=== PATIENT | female | born 1940 | race Caucasian/White ===

== ENCOUNTER 2019-04-25 14:00 | Observation (INO) | payer MEDICARE ==
[~2019-04-25] VITALS: Ht 157.5 cm; Wt 76.1 kg
[2019-04-25 14:15] LABS: BASOPHILS % (AUTO) 0.5 % (0.0-5.0); EOSINOPHILS % (AUTO) 2.2 % (0.0-8.0); HEMATOCRIT 36.5 % (36-48); LYMPHOCYTES % (AUTO) 26.3 % (21.0-51.0); MEAN CORPUSCULAR HEMOGLOBIN 27.7 pg (27.0-33.0); MEAN CORPUSCULAR HGB CONC 34.2 g/dL (32.0-36.0); MEAN CORPUSCULAR VOLUME 80.9 fL (79-99); MONOCYTES % (AUTO) 9.7 % (3.0-13.0); PLATELET COUNT (AUTO) 203 K/uL (130-400); RED BLOOD CELL COUNT(AUTO) 4.51 MIL/uL (4.00-5.50); RED CELL DISTRIBUTION WIDTH 13.5 % (11.0-15.5); WHITE BLOOD COUNT (AUTO) 6.5 K/uL (4.8-10.8)
[2019-04-25 14:36] VITALS: BP 167/84
[2019-04-25 14:40] LABS: CREATININE 0.8 mg/dL (0.5-1.5); POTASSIUM 4.2 mmol/L (3.5-5.1)
--- NOTE | 2019-04-25 15:04 | NUR ---
LAS INFORMED DR. TONO JUAREZ ASST IN REGARDS TO ABNORMAL CHLORIDE AND SODIUM LEVELS. PER DR. POWER, INFORM DR. KIMBALL AND FOLLOW HIS RECOMMENDATIONS
--- NOTE | 2019-04-25 15:05 | NUR ---
LABS INFORMED DR. KIMBALL OF ABNORMAL SODIUM AND CHLORIDE LEVELS. ORDERS RECEIVED TO CALL PTS PCP AND FOLLOW HIS RECOMMENDATIONS.
--- NOTE | 2019-04-25 15:15 | NUR ---
LABS INFORMED DR. AGUERO OF ABNORMAL SODIUM AND CHLORIDE LEVELS. STATES HE WILL CALL PT TO INSTRUCT ON DIET RECOMMENDATIONS AND CHANGE HER LISINOPRIL/HCTZ TO JUST LISINOPRIL AND HAVE PT REDRAWN. CALL DR. COTA FOR ANY MORE CONCERNS
[2019-04-25] MEDS ORDERED: LEVO125 PO (15:23)
[2019-04-25] MEDS ORDERED: MULT-1192 PO (15:23)
[2019-04-25] MEDS ORDERED: LISI1TAB29 PO (15:23)
[2019-04-25] MEDS ORDERED: ESOM20CA31 PO (15:23)
[2019-04-25] MEDS ORDERED: ASPI-555 PO (15:23)
--- NOTE | 2019-04-25 15:30 | NUR ---
LABS CALLED PT TO INFORM OF NEW LAB DRAW ORDER. LEFT MESSAGE.
[2019-04-27 08:51] LABS: CREATININE 0.8 mg/dL (0.5-1.5); POTASSIUM 4.1 mmol/L (3.5-5.1)
[2019-04-28] MEDS ORDERED: CEFAZOLIN SODIUM 1 GM VIAL IVP SCH (06:00)
[2019-05-02 09:11] LABS: CREATININE 0.8 mg/dL (0.5-1.5); POTASSIUM 4.6 mmol/L (3.5-5.1)
--- NOTE | 2019-05-03 13:00 | NUR ---
LABS INFORMED DR. POWER OF ABNORMAL SODIUM LEVEL. PER DR. POWER OK TO PROCEED WITH PLANNED PROCEDURE
[2019-05-04] VITALS (21 sets, daily range): BP systolic 91–147; BP diastolic 45–87
[2019-05-04] MEDS ORDERED: CEFAZOLIN SODIUM 1 GM VIAL ONE (06:20)
[2019-05-04] MEDS ORDERED: LACTATED RINGERS 1000ML 1,000 ML IV ONE (06:20)
[2019-05-04] MEDS ORDERED: LIDOCAINE PF 2% 5ML ABBOJECT ONE (06:39)
[2019-05-04] MEDS ORDERED: SUCCINYLCHOLINE 200MG/10ML SYR ONE (06:39)
[2019-05-04] MEDS ORDERED: PROPOFOL 10 MG/ML 20ML VIAL IV ONE (06:41)
[2019-05-04] MEDS ORDERED: DEXAMETHASONE SOD PHOSPHATE 10MG/ML 1ML VIAL ONE (06:41)
[2019-05-04] MEDS ORDERED: NEOSTIGMINE 5MG/5ML SYR IV ONE (06:41)
[2019-05-04] MEDS ORDERED: GLYCOPYRROLATE 1 MG/5 ML SYRINGE ONE (06:41)
[2019-05-04] MEDS ORDERED: MIDAZOLAM HCL 1 MG/ML 2ML VIAL ONE (06:41)
[2019-05-04] MEDS ORDERED: ROCURONIUM 10MG/1ML SYR 10 MG/ML ML ONE (06:42)
[2019-05-04] MEDS ORDERED: FENTANYL CITRATE PF 50 MCG/1 ML 2ML VIAL ONE ×2 (06:42→08:30)
[2019-05-04] MEDS ORDERED: ONDANSETRON HCL 4 MG/2 ML VIAL ONE (06:42)
[2019-05-04] MEDS ORDERED: DURAMORPH PF1 MG/ML 10ML AMP IV ONE (06:57)
[2019-05-04] MEDS ORDERED: BUPIVACAINE/EPI/PF 0.25% 30ML VIAL IJ ONE ×2 (06:57→08:12)
[2019-05-04] MEDS ORDERED: THROMBIN-JMI 20000 UNIT KIT TP ONE (06:58)
[2019-05-04] MEDS ORDERED: BACITRACIN 50,000 UNIT VIAL ONE (06:58)
[2019-05-04] MEDS ORDERED: PHENYLEPHRINE HCL 10 MG/ML 1ML VIAL IV ONE (08:17)
[2019-05-04] MEDS ORDERED: METOCLOPRAMIDE 10 MG/2 ML VIAL ONE (08:17)
[2019-05-04] MEDS ORDERED: HYDROCODONE/ACETAMINOPHEN 5/325 MG TAB PO PRN (11:15)
[2019-05-04] MEDS ORDERED: PROMETHAZINE HCL 25 MG/ML 1ML AMPULE IM PRN (11:15)
[2019-05-04] MEDS ORDERED: SODIUM CHLORIDE 0.9% 10 ML VIAL IVP PRN (11:15)
[2019-05-04] MEDS ORDERED: CEFAZOLIN SODIUM 1 GM VIAL IVP SCH (11:15)
[2019-05-04] MEDS ORDERED: MEPERIDINE-PF 25 MG/ML SYG ONE (11:21)
[2019-05-04] MEDS ORDERED: AMLO5TAB9 PO (12:44)
[2019-05-04] MEDS ORDERED: LISI-613 PO (12:46)
[2019-05-04] MEDS: LACTATED RINGERS 1000ML 1,000 ML IV SCH ×2 (13:05→23:25)
[2019-05-04] MEDS: DEXAMETHASONE SOD PHOSPHATE 4 MG/ML 1ML VIAL IVP SCH ×3 (15:00→23:20)
--- NOTE | 2019-05-04 17:00 | NUR ---
PATIENT DANGLED AT BEDSIDE. PATIENT STATED FELT DIZZY AND HAD AN EMESIS EPISODE. PATIENT STATED WILL ATTEMPT TO WALK LATER TONIGHT.
[2019-05-04] MEDS ORDERED: LEVOTHYROXINE 125 MCG TABLET PO SCH (21:00)
[2019-05-04] MEDS: MORPHINE SULFATE 2 MG/ML 1ML SYG IVP PRN ×2 (22:14→23:44)
[2019-05-05] VITALS: BP 112/66
[2019-05-05 04:00] VITALS: BP 116/61
[2019-05-05] MEDS: DEXAMETHASONE SOD PHOSPHATE 4 MG/ML 1ML VIAL IVP SCH (05:50)
[2019-05-05] MEDS: LEVOTHYROXINE 125 MCG TABLET PO SCH ×2 (05:51→06:54)
[2019-05-05 08:26] VITALS: BP 121/56
[2019-05-05] MEDS ORDERED: PANTOPRAZOLE SODIUM 40 MG TABLET.DR PO SCH (09:00)
[2019-05-05] MEDS ORDERED: LISINOPRIL 20 MG TABLET PO SCH (09:00)
[2019-05-05] MEDS ORDERED: MULTIVITAMIN TABLET PO SCH (09:00)
[2019-05-05] MEDS ORDERED: ASPIRIN 81 MG EC TAB PO SCH (09:00)
[2019-05-05] MEDS ORDERED: HYDROCHLOROTHIAZIDE 25 MG TABLET PO SCH (09:00)
--- NOTE | 2019-05-05 11:25 | NUR ---
DISCHARGE PATIENT GIVEN DISCHARGE INSTRUCTIONS VIA TEACH BACK. 20G PIV TO LFA DISCONTINUED, TIP INTACT. PADMINI DRAIN TO LEFT LOWER BACK DISCONTINUED, TIP INTACT. KELSI INTACT, NO REDNESS OR SWELLING NOTED. NEW DRY DRESSING APPLIED. PATIENT INSTRUCTED ON INCISION CARE, ACTIVITY, APPOINTMENTS AND PAIN MEDICATIONS. PATIENT STABLE AND DENIES ANY PAIN AT THIS TIME. PATIENT WHEELED TO LOBBY BY JOSE RAUL HALL.
--- NOTE | 2019-05-05 16:11 | NUR ---
1103 Had pt sign SOTO Letter,faxed to [phone] and placed in chart under consent tab.
== END 2019-05-05 12:16 | disposition home or self-care (01) ==
LOC: EDSTATUS 14:00 → DAHIP 05-04 06:07 → 4AH 05-04 11:25
PROVIDERS: ADMIT Neurological Surgery; ATTEND Neurological Surgery
PROC: 01NB0ZZ Release Lumbar Nerve, Open Approach (ICD-10-PCS; principal; 2019-05-04 07:30)
DX: M48.061 Spinal stenosis, lumbar region without neurogenic claudication (principal); M79.605 Pain in left leg
CPT/HCPCS: 36415 ×3; 63047; 63048 ×3; 71045; 72020; 80048 ×3; 85025; 96372; 96374; 96375; 96376 ×3; A4215; A4222; A4223; A4344; A4510; A4600; A4649 ×4; A4663; G0378 ×21; J0330; J0690 ×2; J1100 ×4; J2001; J2175; J2250; J2274; J2370; J2405; J2550; J2704; J2710; J2765; J3010 ×2; J3490 ×3; J7030; J7120 ×3; 96361; 96365; 96366

== ENCOUNTER 2019-05-07 00:50 | Emergency (ER) | payer MEDICARE ==
[~2019-05-07 00:50] MED LIST: AMLO5TAB9 PO; ASPI-555 PO; ESOM20CA31 PO; LEVO125 PO; LISI-613 PO; MULT-1192 PO
[2019-05-07 01:21] LABS: APPEARANCE,URINE Clear (CLEAR); BILIRUBIN,URINE Negative (NEGATIVE); COLOR,URINE Yellow (YELLOW); GLUCOSE, URINE (UA) Negative (NEGATIVE); KETONES,URINE Negative (NEGATIVE); LEUKOCYTE ESTERASE ,URINE Negative (NEGATIVE); NITRATE,URINE Negative (NEGATIVE); OCCULT BLOOD,URINE Negative (NEGATIVE); PH,URINE 8.5 (5.0-8.0); PROTEIN,URINE Negative (NEGATIVE)
[2019-05-07] MEDS ORDERED: ONDANSETRON HCL 4 MG/2 ML VIAL ONE (01:24)
[2019-05-07] MEDS ORDERED: SODIUM CHLORIDE 0.9% 1000ML 1,000 ML IV ONE (01:25)
[2019-05-07] MEDS ORDERED: ORPHENADRINE CITRATE 30 MG/ML ML ONE (01:25)
[2019-05-07] MEDS ORDERED: MORPHINE SULFATE 2 MG/ML 1ML SYG ONE (01:25)
[2019-05-07 01:52] LABS: BASOPHILS % (AUTO) 0.2 % (0.0-5.0); HEMATOCRIT 32.1 % (36-48); LYMPHOCYTES % (AUTO) 15.2 % (21.0-51.0); MEAN CORPUSCULAR HEMOGLOBIN 27.7 pg (27.0-33.0); MEAN CORPUSCULAR HGB CONC 33.3 g/dL (32.0-36.0); MEAN CORPUSCULAR VOLUME 83.2 fL (79-99); MONOCYTES % (AUTO) 9.5 % (3.0-13.0); NEUTROPHILS % (AUTO) 74.3 % (40.0-77.0); PLATELET COUNT (AUTO) 154 K/uL (130-400); RED BLOOD CELL COUNT(AUTO) 3.86 MIL/uL (4.00-5.50); RED CELL DISTRIBUTION WIDTH 14.2 % (11.0-15.5); WHITE BLOOD COUNT (AUTO) 8.9 K/uL (4.8-10.8)
[2019-05-07 02:05] LABS: CREATININE 0.7 mg/dL (0.5-1.5); POTASSIUM 3.5 mmol/L (3.5-5.1)
[2019-05-07 02:09] LABS: ALBUMIN 3.4 g/dL (3.5-5.0); BILIRUBIN,TOTAL 0.9 mg/dL (0.2-1.0); TOTAL PROTEIN, SERUM 6.7 g/dL (6.0-8.3)
[2019-05-07] MEDS ORDERED: LIDOCAINE 5% TOPICAL PATCH TP ONE (03:37)
[2019-05-07] MEDS ORDERED: KETOROLAC TROMETHAMINE 15MG/ML ONE (03:38)
== END 2019-05-07 03:55 | disposition home or self-care (01) ==
LOC: EDH 00:50
DX: M54.5 Low back pain (principal); M62.838 Other muscle spasm; G89.18 Other acute postprocedural pain; K59.00 Constipation, unspecified; Z90.49 Acquired absence of other specified parts of digestive tract
CPT/HCPCS: 36415; 80053; 81003; 85025; 96374; 96375; 99284; J1885; J2360; J2405; J7030